=== PATIENT | female | born 1990 | race Two or more races ===

== ENCOUNTER 2024-04-09 22:47 | Emergency (ER) | payer MEDICAID, SELFPAY ==
[2024-04-09 22:48] VITALS: BMI 21.9
[2024-04-09 23:10] VITALS: BP 111/73; PULSE 77; RESP 19; TEMP 37.1; O2SAT 100
--- NOTE | 2024-04-09 23:15 | XR_ITS ---
Examination: Foot, right, 3 views Technique: AP, oblique, lateral views foot, 3 views Date and time of exam: Seen 2023 1121 hrs. Indications: Right foot pain today Findings: Mild osteopenia. Small plantar posterior bony calcaneal spurs Fracture distal aspect proximal phalanx fifth digit, which may be old, clinical correlation advised Impression: Nondisplaced fracture distal aspect proximal phalanx fifth digit, which may be old, clinical correlation advised
--- NOTE | 2024-04-09 23:45 | PD.EDANKLE ---
Lower Extremity Injury RME/HPI General Chief Complaint: Fall Stated Complaint: FELL, RIGHT LEG INJURY Time Seen by Provider: 04/09/24 23:15 Arrival date/time: 04/09/24 22:47 34F with history of asthma presents to ED with R foot pain after twisted it. Limitations: no limitations Related Data Home Medications ?Medication ?Instructions ?Recorded ?Confirmed montelukast 10 mg tablet 10 mg PO HS 10/15/19 02/25/23 cetirizine 10 mg tablet (Zyrtec) 10 mg PO QAM 05/28/20 02/25/23 fluticasone fur. 200 mcg-umeclid 1 inh inhalation QDAY 01/14/23 02/25/23 62.5 mcg-vilant 25 mcg inhalat.powder (Trelegy Ellipta) Previous Rx's ?Medication ?Instructions ?Recorded azithromycin 250 mg tablet See Rx Instructions PO .COMPLEX #6 02/25/23 tabs Allergies Allergy/AdvReac Type Severity Reaction Status Date / Time Penicillins Allergy Severe DIFF Verified 08/29/23 13:37 BREATHING Sulfa (Sulfonamide Allergy Severe RASH Verified 08/29/23 13:37 Antibiotics) Review of Systems Review of Systems Systems Reviewed: All systems reviewed, normal except as documented Constitutional Constitutional: Reports system reviewed and no additional complaints, except as documented, Denies fever(s) and Denies headache(s) ENT Ears, Nose, Mouth, and Throat: Denies disequilibrium and Denies headache(s) Cardiovascular Cardiovascular: Reports system reviewed and no additional complaints, except as documented, Denies chest pain and Denies dyspnea Respiratory Respiratory: Reports system reviewed and no additional complaints, except as documented, Denies cough and Denies dyspnea Gastrointestinal Gastrointestinal: Reports system reviewed and no additional complaints, except as documented, Denies abdominal pain, Denies nausea and Denies vomiting Musculoskeletal Musculoskeletal: Reports as per HPI and Reports arthralgias Neurologic Neurologic: Reports system reviewed and no additional complaints, except as documented, Denies confusion, Denies disequilibrium and Denies headache(s) Psychiatric Psychiatric: Denies confusion Past Medical History Past Medical History NEUROLOGIC: Negative Neurological Disorders or Seizures CARDIAC: Negative Cardiac Disorders or Congestive Heart Failure RESPIRATORY: Positive Asthma and Bronchitis; Negative Chronic Obstructive Pulmonary Disease (COPD) GASTROINTESTINAL: Positive Gastrointestinal Disorders, Gall Bladder Disease, Gastroesophageal Reflux Disease and Obesity; Negative Hepatitis GENITOURINARY: Positive Genitourinary Disorders and Kidney Stones; Negative Renal Disease REPRODUCTIVE: Positive Previous Pregnancies MUSCULOSKELETAL: Negative Musculoskeletal Disorders ENDOCRINE: Negative Endocrine Disorders, Diabetes Mellitus Type 1 or Diabetes Mellitus Type 2 HEMATOLOGIC: Negative Blood Disorders or Sickle Cell Disease OTHER HISTORY: Positive Hospitalization (surgery) and Chicken Pox; Negative Autoimmune Disease, Shingles, Falls, Blood Transfusions, Blood Transfusion Reaction, Anesthesia Reactions, Chemotherapy, Radiation Therapy, MRSA, Measles, Mumps or Cancer Family History FAMILY HISTORY: Negative Family Psychiatric Problems, Family Respiratory Disorders, Family Cardiac Disorders, Family Gastrointestinal Problems, Family Cancer, Family Surgery or Family Anesthesia Reaction Surgical History SURGICAL: Positive Gastric Bypass Surgery (09/09/2022) and Tubal Ligation (2020); Negative Section Social History SMOKING STATUS: Never smoker SECOND HAND EXPOSURE: No SUBSTANCE USE: does not use ED Exam General Limitations: Present no limitations General appearance: Present alert and in no apparent distress Head Head exam: Present atraumatic Eye Eye exam: Present normal appearance, PERRL and EOMI ENT ENT exam: Present normal exam, normal oropharynx and mucous membranes moist Neck Neck exam: Present normal inspection, full ROM and trachea midline Chest Chest inspection: Present normal inspection and symmetric chest wall rise Respiratory Respiratory exam: Present normal lung sounds bilaterally Cardiovascular Cardiovascular exam: Present regular rate, normal rhythm and normal heart sounds Abdominal Exam Abdominal exam: Present soft and normal bowel sounds Extremities Exam Extremities exam: Present full ROM Expanded Lower Extremity Exam Foot/toe exam: Present full ROM (R) and tenderness Back Exam Back exam: Present normal inspection and full ROM Neurological Exam Neurological exam: Present alert, oriented X3 and CN II-XII intact Psychiatric Psychiatric exam: Present normal affect and normal mood Skin Skin exam: Present warm, dry, intact and normal color Course Quality Measures none Orders Category Date Time Status Crutches .NOW Care 04/09/24 23:54 Active XR foot comp RT min 3V Stat Exams 04/09/24 23:15 Completed Vital Signs Vital signs: Vital Signs Temperature 98.7 F 04/09/24 23:10 Pulse Rate 77 04/09/24 23:10 Respiratory Rate 19 04/09/24 23:10 Blood Pressure 111/73 04/09/24 23:10 Pulse Oximetry (%) 100 04/09/24 23:10 Oxygen Delivery Method Room Air 04/09/24 23:10 O2 at 100% on RA and WNLs Extremity Injury, Lower MDM Narrative MDM Narrative:: 34F with history of asthma presents to ED with R foot pain after twisted it. Physical exam reveals R foot tenderness, but normal ROM. No R lower leg/ankle tenderness. Patient is afebrile, calm, and alert. XR reveals proximal 5th phalanx fx. Patient given boot, crutches, and parliamentary counsel. Patient data External records reviewed:: [facility] previous records Clinical information provided by:: patient Social determinants that could affect healthcare access:: none Patient has the following chronic illnesses:: none How is presenting disease/condition affected by chronic disease/condition?: no chronic disease Evaluation data The following diagnostics were reviewed and interpreted by me:: radiology exam(s) Lab and/or radiology exams considered but not ordered:: ordered Interpretation Summary: above Medications / Prescriptions Medications or Prescriptions considered but not ordered:: not ordered Medication administrations:: n/a Consultations Consultation(s) initiated? (list below): No Diagnosis Extremity Injury, Lower Differential Diagnosis: ankle sprain and strain, acute internal derangement of knee, puncture wound of foot, fracture of toe and ankle fracture Most likely diagnosis given after review of the tests above:: toe fx Admission Indicated Admission indicated?: not indicated Admission Request Was there a request for admission?: No Disposition Plan Disposition Plan: Discharge Discharge Attestation Discharge Attestation: The patient and all family members were given an opportunity to ask questions and understood the discharge instructions. Discharge instructions specifically effects, indications for sooner follow up or return to the emergency department, and the expected course of current diagnosis. Patient condition: Stable Discharge Plan Plan Patient Disposition: HOME (Self Care) Disposition Comment: Stable Prescriptions/Referrals Prescriptions/Med Rec: No Action azithromycin 250 mg tablet See Rx Instructions PO .COMPLEX Qty: 6 0RF Rx Instructions: For 250 mg dose pack: take 500 mg today (day 1), then 250 mg for 4 days (days 2-5) PO montelukast 10 mg Tablet 10 mg PO HS cetirizine [Zyrtec] 10 mg Tablet 10 mg PO QAM Trelegy Ellipta 200-62.5-25 mcg Blister With Device 1 inh INHALATION QDAY Referrals: Adin Oakley MD [Primary Care Provider] - In 1 week Problem List Clinical Impression: Fracture of toe Patient/Caregiver Discharge Instructions Education Materials: ED Fracture, Toe, Closed Additional Instructions: Please follow-up with PCP within 24-48 hours and return immediately if symptoms worsen. If problem persists, recommend outpatient PT and/or MRI follow-up. In the meantime, rest, use ice/heat, and/or compression. Print Language: [place] Stand Alone Forms: Patient Portal Info Letter PA/TRADE RECRUITER Supervising Physician PA/TRADE RECRUITER Supervising Physician: Dr. Dsouza
== END 2024-04-10 00:30 | disposition home or self-care (01) ==
PROVIDERS: Emergency Provider Emergency Medicine; PCP Family Medicine
DX: S92.514A Nondisplaced fracture of proximal phalanx of right lesser toe(s), initial encounter for closed fracture (principal); X50.1XXA Overexertion from prolonged static or awkward postures, initial encounter
CPT/HCPCS: 73630; 99283

== ENCOUNTER 2024-05-24 15:43 | Emergency (ER) | payer MEDICAID, SELFPAY ==
[2024-05-24 15:52] VITALS: BP 111/69; PULSE 97; RESP 20; TEMP 37.1; O2SAT 98; BMI 23.2
--- NOTE | 2024-05-24 15:58 | PD.EDRME ---
Rapid Medical Screening Exam RME Arrival date/time: 05/24/24 15:43 34-year-old female presents to the emergency department complains of upper abdominal pain Chief Complaint: Abdominal Pain Vital signs: Vital Signs Temperature 98.7 F 05/24/24 15:52 Pulse Rate 97 05/24/24 15:52 Respiratory Rate 20 05/24/24 15:52 Blood Pressure 111/69 05/24/24 15:52 Pulse Oximetry (%) 98 05/24/24 15:52 Oxygen Delivery Method Room Air 05/24/24 15:52
[2024-05-24 16:18] LABS: Collection Type, Urine Clean Catch
[2024-05-24 16:30] LABS: HCG Qualitative,Urine Negative
[2024-05-24 16:32] LABS: Basophils % (Auto) 1 % (0-2.5); Eosinophils # (Auto) 0.1 Thou/mm3 (0.0-0.5); Eosinophils % (Auto) 2 % (0-10); Hematocrit 34.2 % (36.0-46.0); Hemoglobin 11.2 g/dL (12.0-16.0); Immature Granulocytes % (Auto) 0 % (0-0); Lymphocytes # (Auto) 1.1 Thou/mm3 (1.0-4.8); Lymphocytes % (Auto) 27 % (10-50); Mean Corpuscular HGB Conc 32.7 g/dl (31.0-37.0); Mean Corpuscular Hemoglobin 28.9 pg (25.0-35.0); Mean Corpuscular Volume 88 fL (80-100); Monocytes # (Auto) 0.3 Thou/mm3 (0.0-0.8); Monocytes % (Auto) 7 % (0-12); Neutrophils # (Auto) 2.7 Thou/mm3 (1.8-7.7); Neutrophils % (Auto) 64 % (37-80); Nucleated Red Blood Cell % 0 /100 WBC (0); Platelet Count 181 Thou/mm3 (140-440); RDW Standard Deviation 44.8 fL (36.4-46.3); Red Blood Count 3.87 Miln/mm3 (4.00-5.20); White Blood Count 4.2 Thou/mm3 (3.6-11.0)
[2024-05-24 16:33] LABS: Bilirubin,Urine Negative (Negative); Blood,Urine Negative (Negative); Clarity,Urine Clear (Clear/Hazy); Color,Urine Yellow (Lt Yel-Yel); Culture Indicated,Urine Not Indicated; Glucose, Urine Negative (Negative); Ketones,Urine Negative (Negative); Leukocyte Esterase,Urine Negative (Negative); Nitrite,Urine Negative (Negative); Protein,Urine Trace (Neg - Trace); RBC,Urine 1 /hpf (0-3); Specific Gravity,Urine 1.031 (1.001-1.035); Squamous Epithelial Cell,Urine 3 /hpf (0-5); WBC,Urine 2 /hpf (0-5)
[2024-05-24 16:51] LABS: Alanine Aminotransferase 143 U/L (10-49); Albumin, Serum 4.6 gm/dL (3.5-5.0); Albumin/Globulin Ratio 1.8 (1.2-2.2); Alkaline Phosphatase 106 U/L (46-116); Anion Gap 7 (7-16); Aspartate Amino Transferase 191 U/L (0-34); BUN/Creatinine Ratio 30 Ratio (12-20); Bilirubin,Total 0.6 mg/dL (0.3-1.2); Blood Urea Nitrogen 21 mg/dL (9-23); Calcium 9.6 mg/dL (8.3-10.6); Calcium (Corrected) 9.6 mg/dL (8.5-10.1); Carbon Dioxide 26.4 mMol/L (20.0-31.0); Chloride 107 mMol/L (98-107); Creatinine (Component) 0.7 mg/dL (0.6-1.3); Estimated Creatinine Clearance 92.8 mL/min (>60); Globulin 2.6 gm/dL (2.3-3.5); Glucose 106 mg/dL (74-106); Lipase 43 U/L (12-53); Osmolality,Calculated 282 (275-295); Potassium 3.7 mMol/L (3.4-5.1); Sodium 140 mMol/L (136-145); Total Protein 7.2 gm/dL (5.7-8.2); eGFR > 60 See Note
[2024-05-24 17:59] VITALS: BP 117/70; PULSE 78; RESP 19; TEMP 37; O2SAT 100
--- NOTE | 2024-05-24 18:12 | PD.EDADULT ---
ED General RME/HPI General Chief complaint: Abdominal Pain Stated complaint: Abdominal pain since this morning Time Seen by Provider: 05/24/24 18:02 Arrival date/time: 05/24/24 15:43 CC: Epigastric pain, HPI ongoing at 3 AM this morning waxes wanes intermittent in nature currently is absent patient denies prior history of similar events no nausea or vomiting. No prior history of similar is no OTC medicines taken. Patient is afebrile nontoxic-appearing not in any acute distress. RME / HPI RME / HPI narrative: 05/24/24 15:43 34-year-old female presents to the emergency department complains of upper abdominal pain Related Data Home Medications ?Medication ?Instructions ?Recorded ?Confirmed montelukast 10 mg tablet 10 mg PO HS 10/15/19 02/25/23 cetirizine 10 mg tablet (Zyrtec) 10 mg PO QAM 05/28/20 02/25/23 fluticasone fur. 200 mcg-umeclid 1 inh inhalation QDAY 01/14/23 02/25/23 62.5 mcg-vilant 25 mcg inhalat.powder (Trelegy Ellipta) Previous Rx's ?Medication ?Instructions ?Recorded azithromycin 250 mg tablet See Rx Instructions PO .COMPLEX #6 02/25/23 tabs famotidine 20 mg tablet 20 mg PO QDAY #30 tabs 05/24/24 Allergies Allergy/AdvReac Type Severity Reaction Status Date / Time Penicillins Allergy Severe DIFF Verified 08/29/23 13:37 BREATHING Sulfa (Sulfonamide Allergy Severe RASH Verified 08/29/23 13:37 Antibiotics) Review of Systems Review of Systems Narrative Review of Systems: GEN: No fever, no chills, no weight loss EYES: No discharge, no visual changes, no pain HEENT: No ear pain, no congestion, no sore throat PULM: No shortness of breath, no cough, no congestion CV: No chest pain, no dyspnea on exertion, no palpitations GI: No nausea, no vomiting, no diarrhea, + pain, no constipation : No frequency, no urgency, no dysuria MUSC/SKEL: No joint pain, no back pain SKIN: No rash PSYCH: No hallucinations, no depression HEME/LYMPH: No easy bleeding or bruising tendencies NEURO: No weakness, no headache ED Exam Narrative Physical exam: [General: Not in any acute distress Head normocephalic HEENT: Within acceptable limits Neck is supple nontender Chest equal chest rise nontender to palpation Respiratory: Clear to auscultation no wheezes crackles or rubs CV: Rate rhythm is regular no murmurs rubs or clicks Abdomen: Mild epigastric tenderness no reflexive guarding no rebound tenderness no tenderness in the right or left quadrants. Back: No CVA tenderness no spinous process tenderness from cervical spine thoracic and lumbar spine Skin: Intact no petechiae rash induration ulceration or crepitus Extremities: Moving all extremity against resistance cap refill less than 2 seconds neurosensory intact Neuro: Awake alert oriented x3 Glascow coma 15 no focal deficits] Course Quality Measures VTE prophylaxis Orders Category Date Time Status CBC Stat Lab 05/24/24 16:24 Completed Comprehensive Metabolic Panel Stat Lab 05/24/24 16:24 Completed HCG Qualitative,Urine Stat Lab 05/24/24 16:13 Completed Lipase Stat Lab 05/24/24 16:24 Completed UA, C/S IF [Urinalysis, C/S if Indicated] Stat Lab 05/24/24 16:13 Completed Famotidine [Pepcid] Med 05/24/24 18:23 Once 20 mg PO X1 ONE Vital Signs Vital signs: Vital Signs Temperature 98.7 F 05/24/24 15:52 Pulse Rate 97 05/24/24 15:52 Respiratory Rate 20 05/24/24 15:52 Blood Pressure 111/69 05/24/24 15:52 Pulse Oximetry (%) 98 05/24/24 15:52 Oxygen Delivery Method Room Air 05/24/24 15:52 [facility] Patient data External records reviewed:: [facility] previous records Clinical information provided by:: patient Social determinants that could affect healthcare access:: none Patient has the following chronic illnesses:: None How is presenting disease/condition affected by chronic disease/condition?: uneffected by Evaluation data The following diagnostics were reviewed and interpreted by me:: lab results Lab and/or radiology exams considered but not ordered:: CBC shows no acute leukocytosis anemia thrombocytopenia CMP shows no acute electrolyte imbalances renal impairment transaminitis or T. bili elevation to Interpretation Summary: Reflux Medications Medications considered but not ordered:: None Medication administrations:: None Consultations Consultation(s) initiated? (list below): No Diagnosis Differential Diagnosis ED Complaint MDM: Cholelithiasis gastritis pancreatitis Most likely diagnosis given after review of the tests above:: Reflux Admission Indicated Admission indicated?: not indicated Explain why admission is indicated or not indicated:: Stable for outpatient follow-up Admission Request Was there a request for admission?: No Disposition Plan Disposition Plan: Discharge Discharge Attestation Discharge Attestation: The patient and all family members were given an opportunity to ask questions and understood the discharge instructions. Discharge instructions specifically effects, indications for sooner follow up or return to the emergency department, and the expected course of current diagnosis. Patient condition: Stable Medical Decision Making Differential Diagnosis Differential Diagnosis: Cholelithiasis gastritis pancreatitis Lab Data 05/24/24 16:24 05/24/24 16:24 Labs: Lab Results 05/24/24 05/24/24 Range/Units 16:13 16:24 WBC 4.2 (3.6-11.0) Thou/mm3 RBC 3.87 L (4.00-5.20) Miln/mm3 Hgb 11.2 L (12.0-16.0) g/dL Hct 34.2 L (36.0-46.0) % MCV 88 (80-100) fL MCH 28.9 (25.0-35.0) pg MCHC 32.7 (31.0-37.0) g/dl RDW Std Deviation 44.8 (36.4-46.3) fL Plt Count 181 (140-440) Thou/mm3 Neut % (Auto) 64 (37-80) % Lymph % (Auto) 27 (10-50) % [place] % (Auto) 7 (0-12) % Eos % (Auto) 2 (0-10) % Baso % (Auto) 1 (0-2.5) % Neut # (Auto) 2.7 (1.8-7.7) Thou/mm3 Lymph # (Auto) 1.1 (1.0-4.8) Thou/mm3 [place] # (Auto) 0.3 (0.0-0.8) Thou/mm3 Eos # (Auto) 0.1 (0.0-0.5) Thou/mm3 Baso # (Auto) 0.0 (0.0-0.2) Thou/mm3 Immature Gran # (Auto) 0.00 (0.00-0.00) Thou/mm3 Absolute Nucleated RBC 0.00 (0.00-0.00) Thou/mm3 Immature Gran % 0 (0-0) % Nucleated RBC % 0 (0) /100 WBC Sodium 140 (136-145) mMol/L Potassium 3.7 (3.4-5.1) mMol/L Chloride 107 (98-107) mMol/L Carbon Dioxide 26.4 (20.0-31.0) mMol/L Anion Gap 7 (7-16) BUN 21 (9-23) mg/dL Creatinine 0.7 (0.6-1.3) mg/dL Estim Creat Clear Calc 92.8 (>60) mL/min eGFR > 60 (60 - ) See Note BUN/Creatinine Ratio 30 H (12-20) Ratio Glucose 106 (74-106) mg/dL Calculated Osmolality 282 (275-295) Calcium 9.6 (8.3-10.6) mg/dL Corrected Calcium 9.6 (8.5-10.1) mg/dL Total Bilirubin 0.6 (0.3-1.2) mg/dL AST 191 H (0-34) U/L ALT 143 H (10-49) U/L Alkaline Phosphatase 106 (46-116) U/L Total Protein 7.2 (5.7-8.2) gm/dL Albumin 4.6 (3.5-5.0) gm/dL Globulin 2.6 (2.3-3.5) gm/dL Albumin/Globulin Ratio 1.8 (1.2-2.2) Lipase 43 (12-53) U/L Ur Collection Type Clean Catch Urine Color Yellow (Lt Yel-Yel) Urine Clarity Clear (Clear/Hazy) Urine pH 6.0 (5.0-7.0) Ur Specific [place] 1.031 (1.001-1.035) Urine Protein Trace (Neg - Trace) Urine Glucose (UA) Negative (Negative) Urine Ketones Negative (Negative) Urine Blood Negative (Negative) Urine Nitrite Negative (Negative) Urine Bilirubin Negative (Negative) Urine Urobilinogen (Auto) 8.0 (0.0-1.0) mg/dL Ur Leukocyte Esterase Negative (Negative) Urine RBC 1 (0-3) /hpf Urine WBC 2 (0-5) /hpf Ur Squamous Epith Cells 3 (0-5) /hpf Urine Bacteria None (None) Ur Culture Indicated? Not Indicated Urine HCG, Qual Negative Discharge Plan Plan Patient Disposition: HOME (Self Care) Patient condition on transfer: Stable Prescriptions/Referrals Prescriptions/Med Rec: New famotidine 20 mg tablet 20 mg PO QDAY Qty: 30 0RF No Action azithromycin 250 mg tablet See Rx Instructions PO .COMPLEX Qty: 6 0RF Rx Instructions: For 250 mg dose pack: take 500 mg today (day 1), then 250 mg for 4 days (days 2-5) PO montelukast 10 mg Tablet 10 mg PO HS cetirizine [Zyrtec] 10 mg Tablet 10 mg PO QAM Trelegy Ellipta 200-62.5-25 mcg Blister With Device 1 inh INHALATION QDAY Referrals: Adin Oakley MD [Primary Care Provider] - In 1 week Problem List Clinical Impression: Acid reflux Patient/Caregiver Discharge Instructions Education Materials: ED Diet, [place] (Adult), ED GERD (Adult) Print Language: Indonesian Stand Alone Forms: Mel Award Info., Work/School Release, Patient Portal Info Letter PA/CLINICAL DATA MANAGEMENT DIRECTOR Supervising Physician PA/CLINICAL DATA MANAGEMENT DIRECTOR Supervising Physician: Tiburcio Mosquera ENP
[2024-05-24] MEDS: FAMOTIDINE 20 MG TABLET PO (18:27)
== END 2024-05-24 18:29 | disposition home or self-care (01) ==
PROVIDERS: Nurse Practitioner Primary Care; Emergency Provider Emergency Medicine; PCP Family Medicine
DX: K21.9 Gastro-esophageal reflux disease without esophagitis (principal)
CPT/HCPCS: 36415; 80053; 81001; 81025; 83690; 85025; 99283; A9270

== ENCOUNTER 2024-11-19 14:56 | Emergency (ER) | payer MEDICAID, SELFPAY ==
[2024-11-19] VITALS (8 sets, daily range): BP systolic 100–126; BP diastolic 65–73; PULSE 60–72; RESP 15–22; TEMP 36.8–36.9; O2SAT 98–100; BMI 22.3
--- NOTE | 2024-11-19 15:23 | XR_ITS ---
Examination: AP chest single view Technique one AP portable upright chest single view Date and time: November 19, 2024, 1529 hrs. Comparison August 29, 2023 Indications: Onset chest pain today. Findings: Normal heart size. The lungs are clear. The osseous structures are intact. Impression: No active disease
--- NOTE | 2024-11-19 15:23 | EKG_ITS ---
[facility] Test Date: 2024-11-19 Pat Name: LENORA GAFFNEY Department: Room: - Gender: Female Instrumentation Chemist: : [id number] Requested By: Arianna Paula Order Number: [id number] Reading MD: Arianna Paula Measurements Intervals Pease Rate: 64 P: 59 AL: 177 QRS: 38 QRSD: 90 T: 60 QT: 420 QTc: 435 Interpretive Statements SINUS RHYTHM Compared to ECG 08/29/2023 14:07:53 Incomplete right bundle-branch block no longer present /store/S0/[id number]/ecg/[id number].pdf
--- NOTE | 2024-11-19 15:26 | XR_ITS ---
Examination: CT abdomen with intravenous contrast CT pelvis with intravenous contrast 2-D coronal reconstructions 2-D sagittal reconstructions Date and time of exam:November 11, 2024 1736 hours Comparison December 16, 2022 INDICATIONS: Epigastric pain today. CTDI: vol (mGy) 6.47 DLP: (mGycm) 316 Technique: Multiple axial sections of the abdomen and pelvis have been obtained. 64 slice high-resolution scanner used. 3 mm axial sections have been obtained, post intravenous injection 60 cc Isovue 370 2-D sagittal, coronal reconstructions obtained. Low dose protocols were performed. One or more of the following dose reduction techniques were used; automated exposure control, adjustment of the mA and/or KV according to patient size, use of iterative reconstruction technique. Findings: No focal liver or splenic lesions Absent gallbladder No pancreatic or adrenal mass No extrahepatic biliary ductal dilatation No renal or ureteral calculi, no hydronephrosis Aorta normal size Normal appendix No bowel obstruction No diverticulitis Anteverted uterus no uterine or adnexal mass Contracted urinary bladder The osseous structures are intact IMPRESSION: No acute process in the abdomen or pelvis
--- NOTE | 2024-11-19 15:40 | XR_ITS ---
Examination: Abdomen sonogram, Limited Date and time of exam: November 19, 2024, 1608 hours INDICATIONS: Epigastric pain today, history cholecystectomy Technique: Real-time diallo scale transabdominal sonographic images of the upper abdomen obtained. Findings: Absent gallbladder Normal common bile duct 0.4 cm Pancreatic head 1.7 cm Liver 13.5 cm fatty infiltration Normal hepatopedal portal venous and Patent IVC IMPRESSION: Absent gallbladder. Normal common bile duct
[2024-11-19 16:05] LABS: Lactate (Lactic Acid) 1.3 mMol/L (0.4-2.0)
[2024-11-19 16:08] LABS: Basophils % (Auto) 0 % (0-2.5); Eosinophils # (Auto) 0.1 Thou/mm3 (0.0-0.5); Eosinophils % (Auto) 1 % (0-10); Hematocrit 35.9 % (36.0-46.0); Hemoglobin 11.9 g/dL (12.0-16.0); Immature Granulocytes % (Auto) 0 % (0-0); Immature Granulocytes Auto 0.01 Thou/mm3 (0.00-0.00); Lymphocytes # (Auto) 1.4 Thou/mm3 (1.0-4.8); Lymphocytes % (Auto) 19 % (10-50); Mean Corpuscular HGB Conc 33.1 g/dl (31.0-37.0); Mean Corpuscular Hemoglobin 29.8 pg (25.0-35.0); Mean Corpuscular Volume 90 fL (80-100); Monocytes # (Auto) 0.3 Thou/mm3 (0.0-0.8); Monocytes % (Auto) 5 % (0-12); Neutrophils # (Auto) 5.5 Thou/mm3 (1.8-7.7); Neutrophils % (Auto) 75 % (37-80); Nucleated Red Blood Cell % 0 /100 WBC (0); Platelet Count 143 Thou/mm3 (140-440); RDW Standard Deviation 44.2 fL (36.4-46.3); Red Blood Count 3.99 Miln/mm3 (4.00-5.20); White Blood Count 7.3 Thou/mm3 (3.6-11.0)
[2024-11-19] MEDS: MORPHINE SULF INJ 10 MG/ML VIAL 4 MG IVP ×2 (16:12→19:50)
[2024-11-19] MEDS: ONDANSETRON INJ 2 MG/ML INJ 2 ML 4 MG IVP (16:12)
[2024-11-19] MEDS: RINGERS LACTATED 1000 ML 1,000 ML 125 ML IV (16:20)
[2024-11-19] MEDS: RINGERS LACTATED 500 ML 500 ML IV (16:20)
[2024-11-19 16:28] LABS: HCG,Qualitative Serum Negative
[2024-11-19 16:38] LABS: Alanine Aminotransferase 28 U/L (10-49); Albumin, Serum 4.5 gm/dL (3.5-5.0); Albumin/Globulin Ratio 1.7 (1.2-2.2); Alkaline Phosphatase 55 U/L (46-116); Anion Gap 8 (7-16); Aspartate Amino Transferase 41 U/L (0-34); BUN/Creatinine Ratio 16 Ratio (12-20); Bilirubin,Total 0.7 mg/dL (0.3-1.2); Blood Urea Nitrogen 11 mg/dL (9-23); Calcium 9.6 mg/dL (8.3-10.6); Calcium (Corrected) 9.6 mg/dL (8.5-10.1); Chloride 109 mMol/L (98-107); Creatine Kinase 63 U/L (34-171); Creatinine (Component) 0.7 mg/dL (0.6-1.3); Estimated Creatinine Clearance 92.8 mL/min (>60); Globulin 2.6 gm/dL (2.3-3.5); Glucose 113 mg/dL (74-106); Lipase 38 U/L (12-53); Osmolality,Calculated 279 (275-295); Potassium 3.4 mMol/L (3.4-5.1); Procalcitonin < 0.04 ng/ml (0.0-0.49); Sodium 140 mMol/L (136-145); Total Protein 7.1 gm/dL (5.7-8.2); Troponin I < 0.002 ng/mL (0.0-0.045); eGFR > 60 See Note
--- NOTE | 2024-11-19 17:01 | PD.EDABDPN ---
ED Abdominal Pain RME/HPI General Chief Complaint: Chest Pain Stated complaint: CHEST PAIN Time seen by provider: 11/19/24 15:19 Arrival date/time: 11/19/24 14:56 Limitations: no limitations RME / HPI RME / HPI narrative: 34 year old female with history of gastric sleeve surgery, cholecystectomy, and tubal ligation presents to the ED with complaint of epigastric abdominal pain beginning 1 day ago. Described as aching in sensation rating as moderate. Reports pain radiates to her back that is associated with nausea but no vomiting. Denies any changes in bowel habits, fevers, chills, or other associated symptoms. Related Data Home Medications ?Medication ?Instructions ?Recorded ?Confirmed montelukast 10 mg tablet 10 mg PO HS 10/15/19 02/25/23 cetirizine 10 mg tablet (Zyrtec) 10 mg PO QAM 05/28/20 02/25/23 fluticasone fur. 200 mcg-umeclid 1 inh inhalation QDAY 01/14/23 02/25/23 62.5 mcg-vilant 25 mcg inhalat.powder (Trelegy Ellipta) Previous Rx's ?Medication ?Instructions ?Recorded azithromycin 250 mg tablet See Rx Instructions PO .COMPLEX #6 02/25/23 tabs famotidine 20 mg tablet 20 mg PO QDAY #30 tabs 05/24/24 Allergies Allergy/AdvReac Type Severity Reaction Status Date / Time Penicillins Allergy Severe DIFF Verified 08/29/23 13:37 BREATHING Sulfa (Sulfonamide Allergy Severe RASH Verified 08/29/23 13:37 Antibiotics) Review of Systems Review of Systems Systems Reviewed: All systems reviewed, normal except as documented Past Medical History Past Medical History RESPIRATORY: Positive Asthma and Bronchitis GASTROINTESTINAL: Positive Gastrointestinal Disorders, Gall Bladder Disease, Gastroesophageal Reflux Disease and Obesity GENITOURINARY: Positive Genitourinary Disorders and Kidney Stones REPRODUCTIVE: Positive Previous Pregnancies OTHER HISTORY: Positive Hospitalization and Chicken Pox Family History FAMILY HISTORY: Negative Family Psychiatric Problems, Family Respiratory Disorders, Family Cardiac Disorders, Family Gastrointestinal Problems, Family Cancer, Family Surgery or Family Anesthesia Reaction Surgical History SURGICAL: Positive Gastric Bypass Surgery and Tubal Ligation; Negative Section Social History SMOKING STATUS: Never smoker SECOND HAND EXPOSURE: No SUBSTANCE USE: does not use ED Exam General Limitations: Present no limitations General appearance: Present alert and in no apparent distress Head Head exam: Present atraumatic, normocephalic and normal inspection Eye Eye exam: Present normal appearance, PERRL and EOMI ENT ENT exam: Present normal exam, normal oropharynx and mucous membranes moist Neck Neck exam: Present normal inspection, full ROM and trachea midline Chest Chest inspection: Present normal inspection and symmetric chest wall rise Respiratory Respiratory exam: Present normal lung sounds bilaterally Cardiovascular Cardiovascular exam: Present regular rate, normal rhythm and normal heart sounds Abdominal Exam Abdominal exam: Present soft, tenderness (epigastric region) and normal bowel sounds; Absent guarding, rebound or rigidity Extremities Exam Extremities exam: Present normal inspection and full ROM Back Exam Back exam: Present normal inspection and full ROM Neurological Exam Neurological exam: Present alert, oriented X3 and CN II-XII intact Psychiatric Psychiatric exam: Present normal affect and normal mood Skin Skin exam: Present warm, dry, intact and normal color Course Quality Measures none Orders Category Date Time Status CT Screening NOW Care 11/19/24 15:26 Active EKG (ED ONLY) *Do not use* NOW Care 11/19/24 15:23 Active Insert IV NOW Care 11/19/24 16:[address] abdomen pelvis w con Stat Exams 11/19/24 15:26 Taken CXRP [XR chest 1V portable] Stat Exams 11/19/24 15:23 Completed EKG (ED Only) Stat Exams 11/19/24 15:23 Ordered US abdomen limited Stat Exams 11/19/24 15:40 Taken Blood Culture (Lab) Stat Lab 11/19/24 15:55 Received CBC [CBC] Stat Lab 11/19/24 15:51 Completed CK [Creatine Kinase] Stat Lab 11/19/24 15:51 Completed CMP [Comprehensive Metabolic Panel] Stat Lab 11/19/24 15:51 Completed HCG,Qualitative Serum Stat Lab 11/19/24 15:51 Completed Lactic Acid [Lactate (Lactic Acid)] Stat Lab 11/19/24 15:51 Completed Lipase Stat Lab 11/19/24 15:51 Completed Procalcitonin Stat Lab 11/19/24 15:51 Completed Troponin I Stat Lab 11/19/24 15:51 Completed UA, C/S IF [Urinalysis, C/S if Indicated] Stat Lab 11/19/24 15:23 Ordered Morphine Inj Med 11/19/24 15:24 Active 4 mg IVP Q2H PRN Ondansetron Inj [Zofran Inj] Med 11/19/24 15:24 Discontinued 4 mg IVP X1 ONE Ringers Lactated 1000 ml [Lactated Ringers] 1,000 ml Med 11/19/24 15:25 Active IV 125 mls/hr Ringers Lactated 500 ml [Lactated Ringers] 500 ml Med 11/19/24 15:25 Discontinued IV 500 mls/hr Vital Signs Vital signs: Vital Signs Temperature 98.2 F 11/19/24 15:00 Pulse Rate 70 11/19/24 15:00 Respiratory Rate 16 11/19/24 15:00 Blood Pressure 111/69 11/19/24 15:00 Pulse Oximetry (%) 99 11/19/24 15:00 Oxygen Delivery Method Room Air 11/19/24 15:00 Pulse ox is 99% on room air which is adequate. Abdominal Pain MDM MDM Narrative MDM Narrative:: aSra Sebastian am scribing for and in the presence of Dr. Anthony. Assessment: Epigastric pain most likely CBD stone. DDx pancreatitis vs gastritis. Plan: zofran, morphine, IV fluids, npo, blood work, CT abdomen, US Abdomen, and MRI if indicated. 1800: Patient signed out to Dr. Gonzáles pending CT and US reports. Patient data External records reviewed:: [facility] previous records (I reviewed ED visit on 05/24/2024 ) Clinical information provided by:: patient Social determinants that could affect healthcare access:: none Patient has the following chronic illnesses:: gastric sleeve surgery, cholecystectomy, and tubal ligation How is presenting disease/condition affected by chronic disease/condition?: exacerbated by Evaluation data The following diagnostics were reviewed and interpreted by me:: lab results and radiology exam(s) Lab and/or radiology exams considered but not ordered:: None Interpretation Summary: Ordering Physician: Arianna Paula MD Date of Service: 11/19/24 Procedure(s): XR chest 1V portable Accession Number(s): [id number] cc: Arianna Paula MD; Tucker Srivastava MD~ Examination: AP chest single view Technique one AP portable upright chest single view Date and time: November 19, 2024, 1529 hrs. Comparison August 29, 2023 Indications: Onset chest pain today. Findings: Normal heart size. The lungs are clear. The osseous structures are intact. Impression: No active disease Dictated By: Tucker Srivastava MD Signed By: <Electronically signed by Tucker Srivastava MD in OV> 11/19/24 1556 Medications / Prescriptions Medications or Prescriptions considered but not ordered:: None Medication administrations:: Medication Administration History Lactated Ringer's (Lactated Ringers) 1,000 mls @ 125 mls/hr IV .Q8H RAHUL Stop: 12/19/24 15:24 Last Admin: 11/19/24 16:20 Dose: 125 mls/hr Documented By: DEMAR Morphine Sulfate (Morphine Sulf Inj 10 Mg/Ml Vial) 4 mg IVP Q2H PRN PRN Reason: PAIN Stop: 11/24/24 15:29 Last Admin: 11/19/24 16:12 Dose: 4 mg Documented By: DEMAR Discontinued Medications Lactated Ringer's (Lactated Ringers) 500 mls @ 500 mls/hr IV .Q1H ONE Stop: 11/19/24 16:24 Last Infusion: 11/19/24 17:05 Dose: Infused Documented By: Admin: 11/19/24 16:20 Dose: 500 mls/hr Documented By: DEMAR Ondansetron HCl (Ondansetron Inj 2 Mg/Ml Inj 2 Ml) 4 mg IVP X1 ONE; Protocol Stop: 11/19/24 15:25 Last Admin: 11/19/24 16:12 Dose: 4 mg Documented By: DEMAR See above Consultations Consultation(s) initiated? (list below): No Diagnosis Differential diagnosis abdominal pain: abdominal pain, gastroenteritis, pancreatitis and other (gastritis ) Most likely diagnosis given after review of the tests above:: abdominal pain Admission Indicated Admission indicated?: not indicated Explain why admission is indicated or not indicated:: Signed out pending CT and US reports Admission Request Was there a request for admission?: No Disposition Plan Disposition Plan: other (specify) (Signed out pending final disposition) Discharge Plan Prescriptions/Referrals Prescriptions/Med Rec: No Action azithromycin 250 mg tablet See Rx Instructions PO .COMPLEX Qty: 6 0RF Rx Instructions: For 250 mg dose pack: take 500 mg today (day 1), then 250 mg for 4 days (days 2-5) PO montelukast 10 mg Tablet 10 mg PO HS cetirizine [Zyrtec] 10 mg Tablet 10 mg PO QAM Trelegy Ellipta 200-62.5-25 mcg Blister With Device 1 inh INHALATION QDAY famotidine 20 mg tablet 20 mg PO QDAY Qty: 30 0RF Referrals: No Primary/Family,Physician [Primary Care Provider] - In 1 week Patient/Caregiver Discharge Instructions Print Language: Romanian
--- NOTE | 2024-11-19 18:24 | PD.EDADDENDU ---
Emergency Room Addendum Addendum Narrative: 1800: Care assumed from Dr. Burkett (emergency physician). Past medical, surgical, social and family history reviewed. Vitals and home medications reviewed. Results and treatment plan discussed. They will assume the care of the patient at this time and will follow the patient, pending CT. The following addendum documentation note is intended to reflect any pending information, findings, or radiology results not included in the patient?s initial chart by the previous shift scribe. RADIOLOGY Abdomen/Pelvis CT: Patient: LENORA GAFFNEY. Record#: [id number] Birthdate: 1990 Age/Sex: 34 / F Location: [facility] Attending Dr: Ordering Physician: Arianna Paula MD Date of Service: 11/19/24 Procedure(s): CT abdomen pelvis w con Accession Number(s): [id number] cc: Arianna Paula MD; Tucker Srivastava MD; NO PRIMARY/FAMILY,PHYSICIAN~ Examination: CT abdomen with intravenous contrast CT pelvis with intravenous contrast 2-D coronal reconstructions 2-D sagittal reconstructions Date and time of exam:November 11, 2024 1736 hours Comparison December 16, 2022 INDICATIONS: Epigastric pain today. CTDI: vol (mGy) 6.47 DLP: (mGycm) 316 Technique: Multiple axial sections of the abdomen and pelvis have been obtained. 64 slice high-resolution scanner used. 3 mm axial sections have been obtained, post intravenous injection 60 cc Isovue 370 2-D sagittal, coronal reconstructions obtained. Low dose protocols were performed. One or more of the following dose reduction techniques were used; automated exposure control, adjustment of the mA and/or KV according to patient size, use of iterative reconstruction technique. Findings: No focal liver or splenic lesions Absent gallbladder No pancreatic or adrenal mass No extrahepatic biliary ductal dilatation No renal or ureteral calculi, no hydronephrosis Aorta normal size Normal appendix No bowel obstruction No diverticulitis Anteverted uterus no uterine or adnexal mass Contracted urinary bladder The osseous structures are intact IMPRESSION: No acute process in the abdomen or pelvis Dictated By: Tucker Srivastava MD Signed By: <Electronically signed by Tucker Srivastava MD in OV> 11/19/24 180 1930: Patient still complains of abdominal pain. States medication helped ease the pain earlier today. Patient has not had a bowel movement while in ED. Willl order GI cocktail and re-evaluate. 2027: After GI cocktail, patient reports overall pain level 1 out of 10. 2033: I have spoken with the patient and discussed today?s findings, in addition to providing specific details for the plan of care. Questions are answered and there is an agreement with the plan. Re-assessment at the time of disposition demonstrates that the patient is in no acute distress. The patient has remained stable throughout the entire ED visit and is without objective evidence for acute process requiring urgent intervention or hospitalization. The patient is stable for discharge; counseling is provided and documented as above, discussing symptomatic treatment and specific conditions for return. Physical Exam Narrative Physical exam: 1930: REPEAT PHYSICAL EXAM GENERAL APPEARANCE: alert and oriented x 4, well-developed, well-nourished, appears in pain and grimmacing VITALS: All vitals were reviewed and the pulse ox is 100% on room air, which is normal according to my interpretation. HEENT: Normocephalic, atraumatic; pupils equal, round, reactive to light; EOMI; mucous membranes pink, moist; oropharynx clear NECK: Supple LUNGS: CTABL; no wheezes, no rales, no rhonchi HEART: Regular rate, regular rhythm; normal S1, S2; no murmurs ABDOMEN: non distended; normal BS; soft, no tenderness, no guarding, no rebound; no masses, no organomegaly, no hernia BACK: no CVA tenderness EXTREMITIES: atraumatic; no edema NEUROLOGIC: awake; alert and oriented x4; cranial nerves II-XII grossly intact; no focal sensory or motor deficits PSYCHIATRIC: appropriate mood and affect SKIN: warm, dry, normal color; no rashes General Limitations: no limitations General appearance: alert and in no apparent distress Abdominal Pain HPI History of Present Illness DR WYNNE MAIN ED EVALUATION: 34 y/o female presents to ED c/o dull epigastric abdominal pain that radiates to the chest and back and loose stool, x 16 hours. She took has had 4-5 episodes of loose stool and took Imodium at home. Denies history of endoscopy and colonoscopy. Denies bloody or tarry stool. She has not experienced this pain before. Patient denies shortness of breath, nausea, constipation, injury or any other associated symptoms or aggravating factors. No modifying factors, no radiation, no migration. No pain reported overall.
[2024-11-19] MEDS: LIDOCAINE VISCOUS 2% 15 ML UDC PO (19:50)
[2024-11-19] MEDS: MG HYD/AL HYD/SIME (Maalox Reg) SUSP 30 ML UDC PO (19:50)
== END 2024-11-19 20:44 | disposition home or self-care (01) ==
PROVIDERS: Emergency Provider Emergency Medicine
DX: R10.13 Epigastric pain (principal); R07.9 Chest pain, unspecified; Z98.84 Bariatric surgery status
CPT/HCPCS: 36415; 71045; 74177; 76705; 80053; 81001; 82550; 83605; 83690; 84145; 84484; 84703; 85025; 87040; 93005; 96361; 96374; 96375; 99285; A4649; J2270; J2405; J3490; J7120; Q9967; A9270

== ENCOUNTER 2025-02-28 10:55 | Inpatient (IN) | payer MEDICAID, SELFPAY ==
--- NOTE | 2025-02-25 07:35 | ESHP_ITS ---
RE: LENORA GAFFNEY : 1990 DATE OF ADMISSION: 02/28/2025 DATE OF SURGERY: 02/28/2025 HISTORY OF PRESENT ILLNESS: This is a 35-year-old 5, para 4-0-1-4 who suffers from chronic pelvic pain, abnormal uterine bleeding, severe dysmenorrhea. The patient has had a sterilization. She declines future fertility. ALLERGIES: PENICILLIN AND SULFA. MEDICATIONS: None. PAST MEDICAL HISTORY: Bariatric surgery, gastric sleeve, asthma. SOCIAL HISTORY: She denies any alcohol drug use or smoking. She is . FAMILY HISTORY: Mother has uterine cancer. OBSTETRIC HISTORY: Four previous full-term normal vaginal deliveries and 1 previous spontaneous at 6 weeks' gestation. PAST SURGICAL HISTORY: Denies. REVIEW OF SYSTEMS: She denies any chest pain, palpitations, cough, fever, shortness of breath or lower extremity pain. PHYSICAL EXAMINATION: VITAL SIGNS: Blood pressure is 109/68, heart rate 68, respirations 18, temperature 98.2, weight 128 pounds. HEENT: Oropharynx and sclerae are clear. LUNGS: Clear to auscultation bilaterally. HEART: Regular rate and rhythm. ABDOMEN: Nontender. No scars noted. EXTREMITIES: Nontender. SKIN: No gross rashes or lesions. NEUROLOGIC: No focal deficit. ASSESSMENT AND PLAN: Dysmenorrhea, chronic pelvic pain, abnormal uterine bleeding. PLAN: Abdominal hysterectomy, bilateral salpingectomy. Informed consent was obtained. The patient remained aware of the risks, complications, alternatives, and benefits of the proposed procedure and she agrees. She is aware of the risk of injury to bowel, bladder, ureters, adjacent organs, nerve injury to the legs and skin, pulmonary embolism, deep vein thrombosis, injury to the vessels of the abdominal wall, hematoma, abscess, wound infection, wound dehiscence, pelvic infection, reoperation to repair injury to internal organs, anesthesia complications, the need for future surgery to remove ovaries and the need to take hormone therapy with its associated risk as well as uncontrollable loss of urine problems, prolapse of the vagina, and rarely . The patient is aware that in some cases, a subtotal hysterectomy may need to be performed and under these circumstances, the menstrual cycle may continue after the surgery. DT: 06:40:31 TT: 07:33:00 Ref: [id number] - TID: [id number]
[2025-02-27 09:10] VITALS: BMI 24.5
[2025-02-27 10:09] LABS: Basophils # (Auto) 0.0 Thou/mm3 (0.0-0.2); Basophils % (Auto) 1 % (0-2.5); Eosinophils # (Auto) 0.1 Thou/mm3 (0.0-0.5); Eosinophils % (Auto) 2 % (0-10); Hematocrit 35.1 % (36.0-46.0); Hemoglobin 11.3 g/dL (12.0-16.0); Immature Granulocytes Auto 0.00 Thou/mm3 (0.00-0.00); Lymphocytes # (Auto) 1.2 Thou/mm3 (1.0-4.8); Lymphocytes % (Auto) 41 % (10-50); Mean Corpuscular HGB Conc 32.2 g/dl (31.0-37.0); Mean Corpuscular Hemoglobin 29.4 pg (25.0-35.0); Mean Corpuscular Volume 91 fL (80-100); Monocytes # (Auto) 0.2 Thou/mm3 (0.0-0.8); Monocytes % (Auto) 6 % (0-12); Neutrophils # (Auto) 1.5 Thou/mm3 (1.8-7.7); Neutrophils % (Auto) 50 % (37-80); Nucleated Red Blood Cell # 0.00 Thou/mm3 (0.00-0.00); Nucleated Red Blood Cell % 0 /100 WBC (0); Platelet Count 191 Thou/mm3 (140-440); RDW Standard Deviation 44.7 fL (36.4-46.3); Red Blood Count 3.85 Miln/mm3 (4.00-5.20); White Blood Count 2.9 Thou/mm3 (3.6-11.0)
[2025-02-27 10:16] LABS: INR 1.0 (0.9-1.3); Partial Thromboplastin Time 27.7 Seconds (22.0-36.0); Prothrombin Time 10.6 Seconds (9.0-12.2)
[2025-02-27 10:18] LABS: Alanine Aminotransferase 12 U/L (10-49); Albumin, Serum 5.0 gm/dL (3.5-5.0); Albumin/Globulin Ratio 1.9 (1.2-2.2); Alkaline Phosphatase 48 U/L (46-116); Anion Gap 9 (7-16); Aspartate Amino Transferase 20 U/L (0-34); BUN/Creatinine Ratio 28 Ratio (12-20); Beta HCG,Quantitative < 1 mIU/mL (<5.0); Bilirubin,Total 0.6 mg/dL (0.3-1.2); Blood Urea Nitrogen 17 mg/dL (9-23); Calcium 10.1 mg/dL (8.3-10.6); Calcium (Corrected) 10.1 mg/dL (8.5-10.1); Carbon Dioxide 26.9 mMol/L (20.0-31.0); Chloride 106 mMol/L (98-107); Creatinine (Component) 0.6 mg/dL (0.6-1.3); Estimated Creatinine Clearance 106.8 mL/min (>60); Globulin 2.6 gm/dL (2.3-3.5); Glucose 88 mg/dL (74-106); Osmolality,Calculated 283 (275-295); Potassium 3.8 mMol/L (3.4-5.1); Sodium 142 mMol/L (136-145); Total Protein 7.6 gm/dL (5.7-8.2); eGFR > 60 See Note
[2025-02-28] VITALS (15 sets, daily range): BP systolic 91–112; BP diastolic 60–77; PULSE 50–79; RESP 12–96; TEMP 36.2–36.6; O2SAT 97–100; BMI 24.5
--- NOTE | 2025-02-28 07:15 | CHAP ---
Prayed with patient before her procedure.
--- NOTE | 2025-02-28 09:05 | SUR.PHASEI ---
pt received from OR in recovery bay 1. pt asleep but responds to voice, breathing unlabored on oxymask 5l. v/s stable. pt dressing to abd and peripad cdi. bena catheter in place. report received from Kirit HERNANDEZ and Buddy DOTY.
--- NOTE | 2025-02-28 09:32 | ESOP_ITS ---
Operative Note - VISUAL MERCHANDISING DIRECTOR Procedure Date of procedure: 02/28/25 Procedure Performed: Total abdominal hysterectomy and bilateral salpingectomy Indication: Abnormal uterine bleeding Chronic pelvic pain Dysmenorrhea Pre-Op diagnosis: Abnormal uterine bleeding Chronic pelvic pain Dysmenorrhea Post-Op diagnosis: Abnormal uterine bleeding Chronic pelvic pain Dysmenorrhea Anesthesia type: General Procedure description: The risks, benefits, indications, and alternatives of the procedure werereviewed with the patient and informed consent was obtained. She was taken to the operating room with IV running. She received antibiotics prior to the procedure. DANIE hose and Flowtrons were in place. She was placed in supine position on the operating room table. She underwent induction of general anesthesia. Mccauley catheter was placed. She was prepped and draped in usual sterile fashion. A timeout was performed. A Pfannenstiel skin incision was made with a scalpel, carried through to the underlying layer of fascia with the Bovie. The fascia was nicked in the midline and the incision extended bilaterally with the Bovie. Inferior aspect of fascial incision was grasped with Dane clamps, elevated, and the underlying rectus muscle dissected off with the Bovie. The rectus muscles were in the midline. The peritoneum identified between 2 Diaz clamps and entered sharply with Metzenbaum scissors. The incision was extended superiorly and inferiorly. The patient was placed in slight Trendelenburg. The O'Cesario-O'Wilkes retractor was placed and the bowel packed away with 3 moist laparotomy pads. The round ligaments on each side were doubly clamped with Dane clamps, transected, and suture ligated with 0 Vicryl. The anterior leaf of the broad ligament was incised along the bladder reflection at the midline from both sides. The? bladder was gently dissected off the lower uterine segment with Metzenbaum scissors and pickups.? The Enseal X-1 large jaw device was then used to grasp the uteroovarian ligament on the left side. It was clamped, fulgurated and transected with hemostasis achieved. The broad ligament on the left side was clamped with the Enseal X-1 large jaw, fulgurated transected and hemostasis was achieved. The uterine artery on the left side was clamped with the Enseal X-1 large jaw fulgurated, transected and hemostasis was achieved. Attention was then turned to the right side where the uteroovarian ligament was clamped with the Enseal X-1 large jaw fulgurated and transected, and hemostasis was achieved. The broad ligament was clamped with the Enseal X-1 large jaw fulgurated and hemostasis was achieved. The right uterine artery was clamped with the , Enseal X-1 large jaw fulgurated , transected and hemostasis was achieved. The cardinal and uterosacral ligaments on the right was clamped with the Lui clamps, transected and sutured with 0-vicryl, hemostasis was achieved. The cardinal and uterosacral ligaments on the left was clamped with the Lui clamps, transected and sutured with 0-vicryl, hemostasis was achieved. The Lui clamps were placed on the left and right at the junction of the cervix and vagina.? Using the Lucy scissors the uterus was amputated and sent with the cervix to pathology. The ipsilateral cardinal and uterosacral ligaments were transfixed to the vaginal cuff angles. The vaginal cuff was closed with a series of interrupted [id number] sutures of 0 Vicryl. Hemos tasis was achieved. Attention was turned to the right fallopian tube which was grasped with the [place] clamp and using the Enseal X-1 Large Jaw the right salpingectomy was performed and hemostasis achieved. Attention was turned to the left fallopian tube which was grasped with the Rojelio clamp and using the Enseal X-1 Large Jaw the left salpingectomy was performed and hemostasis achieved vaginal junction. The pelvis was irrigated with normal saline solution, found to be hemostatic and the surgical pedicles were observed for several minutes and no bleeding was noted. Surgicel powder was placed at the surgical pedicles. The O'Cesario-O'Wilkes retractor was removed as well as the three laparotomy pads. The peritoneum was closed with 0 chromic catgut suture in running fashion. Muscle closed with 0 chromic catgut suture in running fashion. Subfascial layer was found to be hemostatic, and the fascia was closed with 0 Vicryl beginning at each angle and ending center in a running fashion. The subcutaneous tissue was irrigated with normal saline solution, found to be hemostatic, and closed with 2-0 chromic catgut suture in a running fashion. The skin was closed with 4-0 Monocryl. Dermabond Prineo dressing was applied and sterile pressure dressing was applied. She tolerated the procedure well. Counts were correct. I discussed with the patient's the nature of her condition, intraoperative findings, and expectation for recovery. All questions were answered. Estimated blood loss (ml): 100 Findings: Normal size uterus Normal-appearing uterus ovaries and fallopian tubes No endometriosis No pelvic adhesions Complications: none Surgical staff Operation Date: 02/28/25 07:30 Case Staff [employer]: Sreedhar Cadet RN First Assistant: Chelsy Ferguson Surgeon Dr Bagley Diagnosis Problem List Completed Was Problem List Reviewed/Reconciled?: Yes
[2025-02-28] MEDS: RINGERS LACTATED 1000 ML 1,000 ML 30 ML IV (09:38)
--- NOTE | 2025-02-28 10:40 | SUR.PHASEII ---
pt asleep but responds to voice, breathing unlabored on room air. v/s stable. pt dressing to abd and peripad cdi. report called to Vani Terrazas. pt will be transferred to room at this time.
[2025-02-28] MEDS: ONDANSETRON INJ 2 MG/ML INJ 2 ML 4 MG IVP (12:07)
[2025-02-28 13:26] LABS: Basophils # (Auto) 0.0 Thou/mm3 (0.0-0.2); Basophils % (Auto) 0 % (0-2.5); Eosinophils # (Auto) 0.0 Thou/mm3 (0.0-0.5); Eosinophils % (Auto) 0 % (0-10); Hematocrit 31.9 % (36.0-46.0); Hemoglobin 10.6 g/dL (12.0-16.0); Immature Granulocytes Auto 0.02 Thou/mm3 (0.00-0.00); Lymphocytes # (Auto) 0.8 Thou/mm3 (1.0-4.8); Lymphocytes % (Auto) 11 % (10-50); Mean Corpuscular HGB Conc 33.2 g/dl (31.0-37.0); Mean Corpuscular Hemoglobin 29.5 pg (25.0-35.0); Mean Corpuscular Volume 89 fL (80-100); Monocytes # (Auto) 0.3 Thou/mm3 (0.0-0.8); Monocytes % (Auto) 5 % (0-12); Neutrophils # (Auto) 5.6 Thou/mm3 (1.8-7.7); Neutrophils % (Auto) 84 % (37-80); Nucleated Red Blood Cell # 0.00 Thou/mm3 (0.00-0.00); Nucleated Red Blood Cell % 0 /100 WBC (0); Platelet Count 131 Thou/mm3 (140-440); RDW Standard Deviation 43.6 fL (36.4-46.3); Red Blood Count 3.59 Miln/mm3 (4.00-5.20); White Blood Count 6.7 Thou/mm3 (3.6-11.0)
[2025-02-28] MEDS: METOCLOPRAMIDE INJ 5 MG/ML VIAL 2 ML 10 MG IVP (20:38)
[2025-02-28] MEDS: HYDROmorphone 1 MG/ML PCA SYRINGE 30ML 30 MG IV (20:39)
[2025-03-01] VITALS (8 sets, daily range): BP systolic 93–112; BP diastolic 59–72; PULSE 57–89; RESP 16–99; TEMP 36.4–36.8; O2SAT 96–98
[2025-03-01] MEDS: RINGERS LACTATED 1000 ML 1,000 ML 30 ML IV (04:08)
--- NOTE | 2025-03-01 06:04 | ESPR_ITS ---
RE: LENORA GAFFNEY : 1990 DATE OF SERVICE: 03/01/2025 SUBJECTIVE: Postop day #1, the patient has had nausea and vomiting since her surgery. She has gotten relief with Zofran and Reglan. She has got adequate urine output with Mccauley catheter in place. She denies passing flatus. She denies any chest pain, palpitations, shortness of breath, or lower extremity pain. OBJECTIVE: Vital Signs: Blood pressure 93/63, heart rate 68, respirations 17, temperature is 98.2, pulse oximetry is 98% on room air. Lungs: Clear to auscultation bilaterally. Heart: Regular rate and rhythm. Abdomen: Nondistended. Dressing is dry and intact. Extremities: Nontender. LABORATORY DATA: Hemoglobin pre-delivery is 11.3, post-delivery is 10.6. ASSESSMENT: 1. Postop day #1 status post total abdominal hysterectomy, bilateral salpingectomy. 2. Delayed GI motility. 3. Unable to tolerate p.o. pain medication as an outpatient. PLAN: Therefore, the patient is unable to be discharged home at this time. Antiemetics as necessary. Discontinue INCIDENT HANDLER, Toradol 30 mg q.6 hours p.r.n. pain. Advanced diet as able to tolerate, encourage ambulation, remove dressing. I discussed with the patient the nature of her condition, the intraoperative findings, expectation for recovery. All questions were answered. DT: 05:47:10 TT: 06:03:00 Ref: [id number] - TID: [id number]
--- NOTE | 2025-03-01 06:15 | PC.NURSE ---
Pt requested to have bean catheter removed. Sayra DOTY removed catheter, intact.
[2025-03-01] MEDS: KETOROLAC INJ 30 MG/ML VIAL IVP ×2 (06:28→17:12)
[2025-03-01] MEDS: METOCLOPRAMIDE INJ 5 MG/ML VIAL 2 ML 10 MG IVP ×4 (08:45→20:19)
--- NOTE | 2025-03-01 11:17 | PC.SS ---
Follow up note: Pain control. Pt had surgery yesterday for Hysterectomy. Pt will return home upon dc.
--- NOTE | 2025-03-01 13:19 | PC.SS ---
SS met with patient regarding her d/c plan. Pt is alert/oriented. Pt was admitted for [facility] [id number]. Pt confirmed demographic and contact information is correct on facesheet. Pt resides with and kids. Pt ambulates independently without assistance or DME. Pt is ok with all ADLs. Patient?s pharmacy of choice is [facility]. Pt named her , Mario Nance medical decision maker if she is unable. Patient?s choice is to return home upon d/c. Pt does not have an advance directive, SS offered, and pt declined. Pt states she is not diabetic and is not on dialysis. Pt followed up with PCP this year. D/C plan: Return home Next of Kin: Mario Nance, , phone# [phone] PCP: [facility] Address: Correct on facesheet
[2025-03-01] MEDS: HYDROcodone/APAP 5/325 TABLET 1 TAB PO (20:19)
[2025-03-02] VITALS: BP 94/63; PULSE 83; RESP 16; TEMP 36.9; O2SAT 96
[2025-03-02 04:00] VITALS: BP 98/72; PULSE 78; RESP 17; TEMP 36.1; O2SAT 98
--- NOTE | 2025-03-02 06:50 | ESDS_ITS ---
Planned Discharge Date 03/02/25 DS: Providers Provider Date of admission: 02/28/25 10:55 Primary care physician: Adin Oakley MD Admitting Provider: Fadi Bagley MD Attending Provider on Admission: Fadi Bagley MD Attending Provider on DC: Fadi Bagley MD Discharging Provider: Fadi Bagley MD DS: Diagnosis Discharge Diagnosis (1) S/P abdominal hysterectomy: Status: Acute Problem List Completed Was Problem List Reviewed/Reconciled?: Yes Hospital Course Hospital Course Hospital course: Unremarkable Time Spent with Patient Time attestation: Total time spent providing and/or coordinating discharge services: Time spent: Greater than 30 minutes Quality: VTE Deep Vein Thrombosis/Pulmonary Embolism Present on Admission: No Exam - 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/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 QUALIFIED Vital Signs Temp Pulse Resp BP Pulse Ox O2 Del Method O2 Flow Rate 97.0 F 78 17 98/72 98 Room Air 2 03/02/25 04:00 03/02/25 04:00 03/02/25 04:00 03/02/25 04:00 03/02/25 04:00 03/01/25 20:00 02/28/25 16:00 Discharge Plan Plan Patient Disposition: HOME (Self Care) Patient condition on transfer: Stable Prescriptions/Referrals Prescriptions/Med Rec: No Action No Known Home Medications Referrals: Adin Oakley MD [Primary Care Provider, Family Practice] Patient/Caregiver Discharge Instructions Discharge Activity: activity as tolerated Other Discharge Activity Instructions:: Follow up office 1 week. She already has a Rx for [place]. Print Language: Swedish Stand Alone Forms: Mel Award Info., Patient Portal Info Letter Discharge Order Discharge Orders: Discharge (Routine); Ordered 03/02/25 Ordered By: Fadi Bagley
[2025-03-02 06:52] VITALS: PULSE 78; RESP 20; RESP 96
--- NOTE | 2025-03-02 07:12 | ESPR_ITS ---
RE: LENORA GAFFNEY : 1990 DATE OF SERVICE: 03/02/2025 SUBJECTIVE: Postop day #2: The patient denies any problems or complaints. She is voiding. She is ambulating. She tolerated her diet. She is passing flatus. She denies any nausea or vomiting. She denies any dizziness or lightheadedness. She denies any chest pain, palpitations, shortness of breath or lower extremity pain. OBJECTIVE: Vital Signs: Blood pressure is 98/72, heart rate 78, respirations 17, temperature 97.0, pulse oximetry is 98% on room air. Lungs: Clear to auscultation bilaterally. Heart: Regular rate and rhythm. Abdomen: Nondistended. Incision is clear and intact. Extremities: Nontender. ASSESSMENT: Postoperative day #1 status post total abdominal hysterectomy, bilateral salpingectomy. PLAN: Discharge home. Discharge instructions given. Follow up in the office in 1 week. DT: 06:49:19 TT: 07:10:00 Ref: [id number] - TID: [id number]
[2025-03-02] MEDS: METOCLOPRAMIDE INJ 5 MG/ML VIAL 2 ML 10 MG IVP (07:36)
[2025-03-02] MEDS: HYDROcodone/APAP 5/325 TABLET 2 TAB PO (07:36)
[2025-03-02 08:00] VITALS: BP 111/80; PULSE 64; RESP 17; TEMP 36.1; O2SAT 99
== END 2025-03-02 08:45 | disposition home or self-care (01) | DRG 513 ==
LOC: S3NX 10:57
PROVIDERS: Admitting Provider Specialist; PCP Family Medicine; Referring Provider Specialist; Visit Provider Specialist
PROC: 0UT90ZZ Resection of Uterus, Open Approach (ICD-10-PCS; principal; 2025-02-28 07:30)
DX: N93.9 Abnormal uterine and vaginal bleeding, unspecified (principal); G89.29 Other chronic pain; N94.6 Dysmenorrhea, unspecified
CPT/HCPCS: 36415; 80053; 84702; 85025; 85610; 85730; 86850; 86900; 86901; 94664; A4314; A4649; J0690; J1885; J2250; J2274; J2405; J2704; J2765; J3010; J3490; J7120; A9270; J1596; J2270